=== PATIENT | female | born 1995 | race Caucasian/White ===

== ENCOUNTER 2021-07-10 16:56 | Day surgery (SDC) | payer BC ==
[2021-07-10 17:58] VITALS: BMI 38.6
[2021-07-10] MEDS ORDERED: hydrALAZINE 20 MG/ML VIAL SLOW IVP PRN (19:59)
== END 2021-07-10 19:50 | disposition home or self-care (01) ==
LOC: CSHLD/OP 16:56
PROVIDERS: ATTEND Obstetrics & Gynecology
DX: O99.891 Other specified diseases and conditions complicating pregnancy (principal); R10.9 Unspecified abdominal pain; Z3A.31 31 weeks gestation of pregnancy; Z79.82 Long term (current) use of aspirin; Z88.1 Allergy status to other antibiotic agents; Z88.2 Allergy status to sulfonamides

== ENCOUNTER 2021-07-22 21:58 | Day surgery (SDC) | payer BC ==
[2021-07-22 22:30] VITALS: BMI 38.7
[2021-07-22] MEDS ORDERED: hydrALAZINE 20 MG/ML VIAL SLOW IVP PRN (23:04)
[2021-07-22 23:36] LABS: Hemoglobin 10.1 g/dL (12.0-15.5); Mean Corpuscular HGB CONC 35.1 g/dL (32.0-36.0); Mean Corpuscular Volume 82.8 fl (81.6-98.3); Mean Platelet Volume 10.6 fl (7.4-10.4); Platelet Count 316 10x3/uL (150-450); Red Blood Cell (RBC) Count 3.48 10x6/uL (3.90-5.03); White Blood Cell (WBC) Count 13.3 10x3/uL (3.5-10.5)
[2021-07-22 23:52] LABS: Creatinine, Urine 110.2 mg/dL (47-110)
[2021-07-23 00:04] LABS: ALT (SGPT) 38 U/L (8-55); AST (SGOT) 20 U/L (5-34); Albumin 3.4 g/dL (3.5-5.0); Alkaline Phosphatase 134 U/L (40-110); Anion Gap 15 mmol/L (10-20); BUN (Urea Nitrogen) Less than 4 mg/dL (7.0-18.7); Bilirubin, Total 0.3 mg/dL (0.2-1.2); Calc. Creatinine Clearance 240 mL/min (70-130); Calcium 9.1 mg/dL (7.8-10.44); Carbon Dioxide 21 mmol/L (22-29); Chloride 104 mmol/L (98-107); Globulin 3.3 g/dL (2.4-3.5); Glucose 124 mg/dL (70-105); Potassium 3.2 mmol/L (3.5-5.1); Protein, Total 6.7 g/dL (6.0-8.3); Sodium 137 mmol/L (136-145)
[2021-07-23] MEDS ORDERED: Lactated Ringer's 1,000 ML IV SCH (00:30)
== END 2021-07-23 01:53 | disposition home or self-care (01) ==
LOC: CSHLD/OP 21:58
PROVIDERS: ATTEND Obstetrics & Gynecology
DX: O99.891 Other specified diseases and conditions complicating pregnancy (principal); R03.0 Elevated blood-pressure reading, without diagnosis of hypertension; Z3A.33 33 weeks gestation of pregnancy; Z79.82 Long term (current) use of aspirin; Z88.1 Allergy status to other antibiotic agents; Z88.2 Allergy status to sulfonamides
CPT/HCPCS: 36415; 80053; 82570; 84156; 85027; 96360; 99283

== ENCOUNTER 2021-09-01 17:05 | Inpatient (IN) | payer BC ==
[~2021-09-01 17:05] MED LIST: Bupivacaine PF 0.5% 30 ML VIAL ONE; Lidocaine 2% MPF 10 ML AMP (For Epidural Use) ONE
[2021-09-01 17:20] VITALS: BMI 40.3
[2021-09-01] MEDS ORDERED: Lidocaine 1% (PF) 30 ML VIAL SC PRN (18:13)
[2021-09-01] MEDS ORDERED: hydrALAZINE 20 MG/ML VIAL SLOW IVP PRN (18:13)
[2021-09-01] MEDS ORDERED: Misoprostol 200 MCG TAB PR PRN (18:13)
[2021-09-01] MEDS ORDERED: Ibuprofen 800 MG TAB PO PRN (18:13)
[2021-09-01] MEDS ORDERED: Promethazine HCl 25 MG/ML VIAL IM PRN (18:13)
[2021-09-01] MEDS ORDERED: HYDROcodone/Acetaminophen 5/325 mg Tablet PO PRN ×2 (18:13)
[2021-09-01] MEDS ORDERED: Ondansetron PF 4 MG/2 ML Vial IVP PRN (18:13)
[2021-09-01] MEDS ORDERED: NS w/ Oxytocin 30 units 500 ML IV SCH (18:15)
[2021-09-01 20:15] LABS: Hemoglobin 10.9 g/dL (12.0-15.5); Mean Corpuscular HGB CONC 35.5 g/dL (32.0-36.0); Mean Corpuscular Hemoglobin 29.9 pg (27.0-33.0); Mean Corpuscular Volume 84.3 fl (81.6-98.3); Mean Platelet Volume 11.2 fl (7.4-10.4); Platelet Count 251 10x3/uL (150-450); RBC Distribution Width 16.2 % (11.5-14.5); Red Blood Cell (RBC) Count 3.64 10x6/uL (3.90-5.03); White Blood Cell (WBC) Count 11.9 10x3/uL (3.5-10.5)
[2021-09-01 20:22] LABS: ALT (SGPT) 11 U/L (8-55); AST (SGOT) 18 U/L (5-34); Albumin 3.3 g/dL (3.5-5.0); Alkaline Phosphatase 199 U/L (40-110); Anion Gap 17 mmol/L (10-20); BUN (Urea Nitrogen) 5 mg/dL (7.0-18.7); Bilirubin, Total 0.3 mg/dL (0.2-1.2); Calc. Creatinine Clearance 281 mL/min (70-130); Calcium 8.8 mg/dL (7.8-10.44); Carbon Dioxide 18 mmol/L (22-29); Chloride 106 mmol/L (98-107); Estimated GFR 132; Glucose 101 mg/dL (70-105); Potassium 3.4 mmol/L (3.5-5.1); Protein, Total 6.3 g/dL (6.0-8.3); Sodium 138 mmol/L (136-145)
[2021-09-01 20:37] LABS: HBSAg Index 0.22 S/CO (0-0.99); Hep B Surf Ag Non-Reactive S/CO (NonReactive); Syphilis Antibody Nonreactive (Nonreactive); Syphilis Antibody Index 0.03 S/CO (<1.00 Non-Reactive)
[2021-09-01 21:20] LABS: SARS-CoV-2 NAA Rapid Test Not Detected (NotDetected)
[2021-09-01] MEDS: Acetaminophen 500 MG TAB PO PRN (22:48)
[2021-09-02] MEDS ORDERED: Butorphanol Tartrate 1 MG/ML VIAL ONE (03:16)
[2021-09-02] MEDS ORDERED: Butorphanol Tartrate 1 MG/ML VIAL SLOW IVP PRN (04:11)
[2021-09-02] MEDS ORDERED: Magnesium Sulfate 20 gm/500 ml 20 GM/500 ML BAG ONE (06:22)
[2021-09-02] MEDS ORDERED: Lorazepam 2 MG/ML VIAL SLOW IVP PRN (07:00)
[2021-09-02] MEDS ORDERED: Labetalol HCl 100 MG/20 ML VIAL SLOW IVP PRN ×2 (07:00)
[2021-09-02] MEDS ORDERED: Magnesium Sulfate 20 gm/500 ml 4 GM/100 ML BAG IVPB SCH (07:00)
[2021-09-02] MEDS ORDERED: Magnesium Sulfate 20 gm/500 ml 20 GM/500 ML BAG IVPB SCH (07:00)
[2021-09-02] MEDS ORDERED: Calcium Gluc 4.6 MEQ/10 ML (100 MG/ML) SLOW IVP PRN (07:00)
[2021-09-02] MEDS ORDERED: hydrALAZINE 20 MG/ML VIAL SLOW IVP PRN ×2 (07:00)
[2021-09-02] MEDS ORDERED: Fentanyl 2 mcg/Bup 0.1% Cadd 100 ML ONE (08:34)
[2021-09-02] MEDS: Fentanyl 2 mcg/Bupivacaine 0.1% Cassette 100 ML EPIDURAL SCH ×2 (09:19→16:25)
[2021-09-02] MEDS: Misoprostol 100 MCG TAB VAG SCH ×2 (09:48→19:41)
[2021-09-02] MEDS: Acetaminophen 500 MG TAB PO PRN ×2 (10:12→19:22)
[2021-09-02] MEDS ORDERED: Lactated Ringer's 500 ML IV PRN (13:05)
[2021-09-02] MEDS ORDERED: Moisturizing Cream (Eucerin) 113 GM JAR TOP PRN ×2 (13:05→19:44)
[2021-09-02] MEDS ORDERED: ePHEDrine Sulfate 50 MG/10 ML VIAL SLOW IVP PRN (13:05)
[2021-09-02] MEDS ORDERED: diphenhydrAMINE 50 MG/ML VIAL IVP PRN ×3 (13:05→21:40)
[2021-09-02] MEDS ORDERED: Naloxone HCl 0.4 mg/ml Vial IVP PRN ×4 (13:05→19:44)
[2021-09-02] MEDS ORDERED: Promethazine HCl 25 MG/ML VIAL IM PRN ×3 (13:05→21:40)
[2021-09-02] MEDS ORDERED: Ondansetron PF 4 MG/2 ML Vial IVP PRN ×3 (13:05→21:40)
[2021-09-02] MEDS ORDERED: Acetaminophen 325 MG TAB PO PRN (13:05)
[2021-09-02] MEDS ORDERED: Communication Order-Pharmacy FS SCH ×3 (13:15→21:45)
[2021-09-02 15:32] LABS: Magnesium 4.3 mg/dL (1.6-2.6)
[2021-09-02] MEDS ORDERED: Azithromycin 500 MG VIAL ONE (18:28)
[2021-09-02] MEDS ORDERED: CEFAZOLIN 2 GM VIAL ONE (18:31)
[2021-09-02] MEDS ORDERED: Famotidine/PF 20 mg/2ml Vial ONE (19:29)
[2021-09-02] MEDS ORDERED: Famotidine/PF 20 mg/2ml Vial SLOW IVP PRN (19:31)
[2021-09-02] MEDS ORDERED: Bicitra 30 ML UDCUP PO PRN (19:31)
[2021-09-02] MEDS ORDERED: Fentanyl 100 MCG/2 ML VIAL SLOW IVP PRN (19:44)
[2021-09-02] MEDS ORDERED: L&D-Morphine 4 MG/ML VIAL SLOW IVP PRN (19:44)
[2021-09-02] MEDS ORDERED: Ondansetron HCl/PF 4 MG/2 ML Vial IVP PRN (19:44)
[2021-09-02] MEDS ORDERED: Promethazine HCl 25 MG SUPP PR PRN (19:44)
[2021-09-02] MEDS ORDERED: Meperidine HCl/PF 25 MG/ML VIAL SLOW IVP PRN (19:44)
[2021-09-02] MEDS ORDERED: Naloxone HCl 0.4 mg/ml Vial IV PRN ×2 (19:44→21:40)
[2021-09-02] MEDS ORDERED: Ketorolac Tromethamine 30 MG/ML VIAL IVP SCH (19:45)
[2021-09-02] MEDS ORDERED: Azithromycin 500 MG in Sodium Chloride 0.9% 250 ML 250 ML IVPB SCH (19:45)
[2021-09-02] MEDS ORDERED: Dexamethasone 4 mg/ml Vial ONE (19:50)
[2021-09-02] MEDS ORDERED: Oxytocin 10 UNITS/ML VIAL ONE (19:50)
[2021-09-02] MEDS ORDERED: Ondansetron PF 4 MG/2 ML Vial ONE (19:50)
[2021-09-02] MEDS ORDERED: Morphine PF 10 MG/10 ML VIAL ONE (19:50)
[2021-09-02] MEDS ORDERED: Gentamicin 380 MG, Admixture Fee 1 EACH in Sodium Chloride 0.9% 100 ML IVPB SCH (20:30)
[2021-09-02] MEDS ORDERED: Clindamycin/D5W 900 MG in Premix Bag 1 BAG IVPB SCH (20:30)
[2021-09-02] MEDS ORDERED: Lidocaine 2% PF 5 ML VIAL ONE (20:48)
[2021-09-02] MEDS ORDERED: Misoprostol 200 MCG TAB ONE (20:53)
[2021-09-02] MEDS ORDERED: Tranexamic Acid 1,000 MG/10 ML VIAL ONE (20:53)
[2021-09-02] MEDS ORDERED: Ketamine 50 MG/ML (10ML VIAL) ONE (20:53)
[2021-09-02] MEDS ORDERED: Midazolam HCl 2 mg/2 ml Vial ONE (20:54)
[2021-09-02 21:21] LABS: RapidComm Collect By CBN
[2021-09-02 21:24] LABS: RapidComm Collect By CBN; pH (Cord, venous) 7.381 (7.250-7.350)
[2021-09-02] MEDS ORDERED: diphenhydrAMINE 25 MG CAP PO PRN (21:40)
[2021-09-02] MEDS ORDERED: diphenhydrAMINE 50 MG/ML VIAL IM PRN (21:40)
[2021-09-02] MEDS ORDERED: fentaNYL Citrate/PF 1,000 MCG in Sodium Chloride 0.9% 30 ML IV PRN (21:40)
[2021-09-02] MEDS ORDERED: Zolpidem Tartrate 5 MG TAB PO PRN (21:40)
[2021-09-03] MEDS ORDERED: Boostrix 0.5 ML (Tdap) VIAL IM ONE (00:07)
[2021-09-03] MEDS ORDERED: Calcium Gluc 4.6 MEQ/10 ML (100 MG/ML) SLOW IVP PRN ×2 (00:07→08:38)
[2021-09-03] MEDS ORDERED: HYDROcodone/Acetaminophen 5/325 mg Tablet PO PRN (00:07)
[2021-09-03] MEDS ORDERED: Lanolin Ointment 7 GM TUBE TOP PRN (00:07)
[2021-09-03] MEDS ORDERED: Ondansetron PF 4 MG/2 ML Vial IVP PRN (00:07)
[2021-09-03] MEDS ORDERED: Labetalol HCl 100 MG/20 ML VIAL SLOW IVP PRN ×2 (00:07)
[2021-09-03] MEDS ORDERED: Zolpidem Tartrate 5 MG TAB PO PRN (00:07)
[2021-09-03] MEDS ORDERED: Lorazepam 2 MG/ML VIAL SLOW IVP PRN (00:07)
[2021-09-03] MEDS ORDERED: Simethicone Chewable 80 MG TAB PO PRN (00:07)
[2021-09-03] MEDS ORDERED: hydrALAZINE 20 MG/ML VIAL SLOW IVP PRN ×2 (00:07)
[2021-09-03] MEDS ORDERED: NS w/ Oxytocin 30 units 500 ML IV SCH (00:45)
[2021-09-03] MEDS ORDERED: Magnesium Sulfate 20 gm/500 ml 20 GM/500 ML BAG ONE (01:06)
[2021-09-03] MEDS: Ketorolac Tromethamine 30 MG/ML VIAL IVP PRN ×3 (01:10→14:56)
[2021-09-03 06:49] LABS: #Eosinphils 0.1 10x3/uL (0.0-0.5); %Basophils 0.1 % (0.0-2.0); %Eosinophils 0.2 % (0.0-6.0); %Lymphocytes 6.1 % (18.0-47.0); %Neutrophils 88.6 % (40.0-75.0); Mean Corpuscular Hemoglobin 29.5 pg (27.0-33.0); Mean Corpuscular Volume 86.9 fl (81.6-98.3); Mean Platelet Volume 11.1 fl (7.4-10.4); Platelet Count 247 10x3/uL (150-450); Red Blood Cell (RBC) Count 3.05 10x6/uL (3.90-5.03); White Blood Cell (WBC) Count 24.8 10x3/uL (3.5-10.5)
[2021-09-03 07:26] LABS: Band 19 % (5-11); Lymphocytes 4 % (21-51); Monocytes 1 % (0-10); Neutrophil 76 % (42-75)
[2021-09-03 07:27] LABS: Platelet Morphology Comment Appears Adequate
[2021-09-03 07:28] LABS: Anisocytosis SLIGHT = 6-15 cells (100X) (0-5/hpf); Hypochromia SLIGHT = 6-15 cells (100X) (0-5/hpf); Macrocytosis SLIGHT = 6-15 cells (100X) (0-5/hpf); Microcytosis SLIGHT = 6-15 cells (100X) (0-5/hpf); Polychromasia SLIGHT = 2-3 cells (100X) (0-2/hpf)
[2021-09-03] MEDS ORDERED: Magnesium Sulfate 20 gm/500 ml 20 GM/500 ML BAG IVPB SCH (08:45)
[2021-09-03] MEDS: Prenatal Vitamin 1 TAB PO SCH (09:10)
[2021-09-03] MEDS ORDERED: Furosemide 20 MG/2 ML VIAL SLOW IVP SCH (09:15)
[2021-09-03] MEDS ORDERED: Ketorolac Tromethamine 30 MG/ML VIAL IVP PRN (21:46)
[2021-09-04] MEDS: Ibuprofen 800 MG TAB PO SCH ×3 (05:22→21:04)
[2021-09-04] MEDS: HYDROcodone/Acetaminophen 5/325 mg Tablet PO PRN ×3 (09:13→18:36)
[2021-09-04] MEDS: Prenatal Vitamin 1 TAB PO SCH (09:13)
[2021-09-05] MEDS: Ibuprofen 800 MG TAB PO SCH ×3 (05:16→22:02)
[2021-09-05] MEDS: Prenatal Vitamin 1 TAB PO SCH (09:01)
[2021-09-05] MEDS ORDERED: Labetalol HCl 100 MG TAB PO SCH (09:30)
[2021-09-05] MEDS ORDERED: NIFEdipine XL 30 MG TAB PO SCH (19:00)
[2021-09-05] MEDS: Labetalol HCl 100 MG TAB PO SCH (22:01)
[2021-09-06] MEDS: Ibuprofen 800 MG TAB PO SCH (05:11)
[2021-09-06] MEDS: Misoprostol 100 MCG TAB VAG SCH (06:10)
[2021-09-06 08:13] VITALS: BP 134/79; TEMP 97.8
[2021-09-06] MEDS: Labetalol HCl 100 MG TAB PO SCH (08:37)
[2021-09-06] MEDS: Prenatal Vitamin 1 TAB PO SCH (08:37)
[2021-09-06] MEDS ORDERED: NIFEdipine XL 30 MG TAB PO SCH (09:00)
== END 2021-09-06 10:00 | disposition home or self-care (01) | DRG 788 ==
LOC: CSHLD/OP 17:05 → CSHLD 19:44 → CSHPED 09-03 23:29
PROVIDERS: ADMIT Obstetrics & Gynecology; ATTEND Obstetrics & Gynecology
PROC: 10D00Z1 Extraction of Products of Conception, Low, Open Approach (ICD-10-PCS; principal; 2021-09-02)
PROC: 10907ZC Drainage of Amniotic Fluid, Therapeutic from Products of Conception, Via Natural or Artificial Opening (ICD-10-PCS; 2021-09-02)
PROC: 10H07YZ Insertion of Other Device into Products of Conception, Via Natural or Artificial Opening (ICD-10-PCS; 2021-09-02)
DX: O14.14 Severe pre-eclampsia complicating childbirth (principal); Z3A.38 38 weeks gestation of pregnancy; Z37.0 Single live birth; Z20.822 Contact with and (suspected) exposure to COVID-19; Z88.2 Allergy status to sulfonamides; Z88.1 Allergy status to other antibiotic agents; O32.4XX0 Maternal care for high head at term, not applicable or unspecified; O69.81X0 Labor and delivery complicated by cord around neck, without compression, not applicable or unspecified
CPT/HCPCS: 36415; 76815; 80053; 81003; 82805; 83735; 85025; 85027; 86780; 86850; 86900; 86901; 87340; 99285; J0360; J0456; J0595; J0690; J1100; J1885; J1940; J2001; J2250; J2274; J2405; J2590; J3010; J3475; J3490; S0020; U0002

== ENCOUNTER 2023-03-03 21:26 | Day surgery (SDC) | payer SELFPAY ==
[2023-03-03 21:50] VITALS: BMI 35.2
[2023-03-03] MEDS ORDERED: hydrALAZINE 20 MG/ML VIAL SLOW IVP PRN (22:19)
[2023-03-03 23:10] LABS: Bilirubin Neg (Negative); Blood, Urine Negative (Negative); Clarity Clear (Clear); Glucose, Urine (Dipstick) Normal (Negative); Ketone, Urine Negative (Negative); Leukocyte Negative (Negative); Nitrite Negative (Negative); Protein, Urine (Dipstick) 15 mg/dl (Neg-Trace); Specific Gravity, Urine 1.015 (1.005-1.030); Urobilinogen Normal mg/dL (Less than 2)
[2023-03-03 23:24] LABS: Bacteria/HPF None Seen HPF (None Seen); CAUTI Indications for Culture Pregnancy; RBC/HPF None Seen HPF (0-3); Squamous Epithelial None Seen HPF (0-3); WBC/HPF None Seen HPF (0-3)
[2023-03-03 23:25] LABS: Urine Culture Reflex Yes Yes
== END 2023-03-04 00:06 | disposition home or self-care (01) ==
LOC: CSHLD/OP 21:26
PROVIDERS: ATTEND Obstetrics & Gynecology
DX: O99.891 Other specified diseases and conditions complicating pregnancy (principal); R10.9 Unspecified abdominal pain; Z79.899 Other long term (current) drug therapy; Z88.8 Allergy status to other drugs, medicaments and biological substances; Z88.2 Allergy status to sulfonamides; Z3A.29 29 weeks gestation of pregnancy
CPT/HCPCS: 81001; 87086; 99282

== ENCOUNTER 2023-03-26 19:09 | Day surgery (SDC) | payer SELFPAY ==
[2023-03-26 19:49] VITALS: BMI 36.0
[2023-03-26] MEDS ORDERED: hydrALAZINE 20 MG/ML VIAL SLOW IVP PRN (20:05)
[2023-03-26] MEDS ORDERED: Ondansetron ODT 4 MG TAB PO PRN (20:09)
[2023-03-26 20:27] LABS: #Eosinphils 0.1 10x3/uL (0.0-0.5); #Neutrophils 7.9 10x3/uL (1.5-8.4); %Basophils 0.3 % (0.0-2.0); %Eosinophils 0.6 % (0.0-6.0); %Monocytes 8.5 % (0.0-10.0); %Neutrophils 67.4 % (40.0-75.0); Hematocrit 29.9 % (34.9-44.5); Hemoglobin 10.8 g/dL (12.0-15.5); Mean Corpuscular HGB CONC 36.1 g/dL (32.0-36.0); Mean Corpuscular Hemoglobin 30.6 pg (27.0-33.0); Mean Corpuscular Volume 84.7 fl (81.6-98.3); Mean Platelet Volume 10.6 fl (7.4-10.4); Platelet Count 279 10x3/uL (150-450); RBC Distribution Width 12.3 % (11.5-14.5); Red Blood Cell (RBC) Count 3.53 10x6/uL (3.90-5.03); White Blood Cell (WBC) Count 11.7 10x3/uL (3.5-10.5)
[2023-03-26] MEDS ORDERED: Lactated Ringer's 1,000 ML IV SCH (20:30)
[2023-03-26 20:40] LABS: ALT (SGPT) 35 U/L (8-55); Albumin 3.4 g/dL (3.5-5.0); Alkaline Phosphatase 99 U/L (40-110); Anion Gap 16 mmol/L (10-20); BUN (Urea Nitrogen) 6 mg/dL (7.0-18.7); Bilirubin, Total 0.3 mg/dL (0.2-1.2); Calc. Creatinine Clearance 212 mL/min (70-130); Calcium 8.6 mg/dL (7.8-10.44); Carbon Dioxide 19 mmol/L (22-29); Chloride 104 mmol/L (98-107); Estimated GFR 126; Globulin 3.6 g/dL (2.4-3.5); Glucose 91 mg/dL (70-105); Potassium 3.6 mmol/L (3.5-5.1); Sodium 135 mmol/L (136-145)
[2023-03-26 20:41] LABS: AST (SGOT) 40 U/L (5-34)
[2023-03-26 20:59] LABS: Creatinine, Urine 125.7 mg/dL (47-110)
== END 2023-03-26 22:34 | disposition home or self-care (01) ==
LOC: CSHLD/OP 19:09
PROVIDERS: ATTEND Obstetrics & Gynecology
DX: O99.891 Other specified diseases and conditions complicating pregnancy (principal); R51.9 Headache, unspecified; R11.0 Nausea; R10.13 Epigastric pain; N85.8 Other specified noninflammatory disorders of uterus; H53.9 Unspecified visual disturbance; O12.03 Gestational edema, third trimester; O99.513 Diseases of the respiratory system complicating pregnancy, third trimester; J45.909 Unspecified asthma, uncomplicated; O99.283 Endocrine, nutritional and metabolic diseases complicating pregnancy, third trimester; E28.2 Polycystic ovarian syndrome; Z79.899 Other long term (current) drug therapy; Z88.8 Allergy status to other drugs, medicaments and biological substances; Z88.2 Allergy status to sulfonamides; Z3A.32 32 weeks gestation of pregnancy
CPT/HCPCS: 80053; 82570; 84156; 85025

== ENCOUNTER 2023-04-21 12:47 | Inpatient (IN) | payer SELFPAY ==
[2023-04-21] MEDS: Acetaminophen 500 MG TAB PO SCH (13:40)
[2023-04-21 14:11] LABS: #Basophils 0.1 10x3/uL (0.0-0.2); #Eosinphils 0.1 10x3/uL (0.0-0.5); #Monocytes 0.9 10x3/uL (0.0-1.1); #Neutrophils 10.1 10x3/uL (1.5-8.4); %Basophils 0.3 % (0.0-2.0); %Lymphocytes 22.4 % (18.0-47.0); %Monocytes 6.1 % (0.0-10.0); %Neutrophils 68.8 % (40.0-75.0); Hematocrit 27.5 % (34.9-44.5); Hemoglobin 9.5 g/dL (12.0-15.5); Mean Corpuscular HGB CONC 34.5 g/dL (32.0-36.0); Mean Corpuscular Hemoglobin 29.8 pg (27.0-33.0); Mean Corpuscular Volume 86.2 fl (81.6-98.3); Mean Platelet Volume 10.7 fl (7.4-10.4); Platelet Count 267 10x3/uL (150-450); RBC Distribution Width 12.3 % (11.5-14.5); Red Blood Cell (RBC) Count 3.19 10x6/uL (3.90-5.03); White Blood Cell (WBC) Count 14.6 10x3/uL (3.5-10.5)
[2023-04-21 14:23] LABS: ALT (SGPT) 15 U/L (8-55); AST (SGOT) 18 U/L (5-34); Albumin 3.3 g/dL (3.5-5.0); Alkaline Phosphatase 118 U/L (40-110); Anion Gap 12 mmol/L (10-20); BUN (Urea Nitrogen) Less than 4 mg/dL (7.0-18.7); Bilirubin, Total 0.3 mg/dL (0.2-1.2); Calc. Creatinine Clearance 0 mL/min (70-130); Calcium 8.7 mg/dL (7.8-10.44); Carbon Dioxide 20 mmol/L (22-29); Chloride 107 mmol/L (98-107); Estimated GFR 128; Globulin 3.4 g/dL (2.4-3.5); Glucose 69 mg/dL (70-105); Potassium 3.4 mmol/L (3.5-5.1); Protein, Total 6.7 g/dL (6.0-8.3); Sodium 136 mmol/L (136-145)
[2023-04-21] MEDS ORDERED: Labetalol HCl 100 MG/20 ML VIAL SLOW IVP PRN ×3 (15:04)
[2023-04-21] MEDS ORDERED: Ondansetron PF 4 MG/2 ML Vial IVP PRN ×2 (15:04→17:35)
[2023-04-21] MEDS ORDERED: Calcium Gluc 4.6 MEQ/10 ML (100 MG/ML) SLOW IVP PRN (15:04)
[2023-04-21] MEDS ORDERED: hydrALAZINE 20 MG/ML VIAL SLOW IVP PRN ×2 (15:04)
[2023-04-21] MEDS ORDERED: Bicitra 30 ML UDCUP PO PRN (15:04)
[2023-04-21] MEDS ORDERED: Lorazepam 2 MG/ML VIAL SLOW IVP PRN (15:04)
[2023-04-21] MEDS ORDERED: Promethazine HCl 25 MG/ML VIAL IM PRN ×2 (15:04→17:35)
[2023-04-21] MEDS ORDERED: Famotidine/PF 20 mg/2ml Vial SLOW IVP PRN (15:04)
[2023-04-21] MEDS ORDERED: Oxytocin 30 units/NS 500 ML 500 ML IV SCH (15:15)
[2023-04-21] MEDS: Magnesium Sulfate 20 gm/500 ml 20 GM/500 ML BAG IVPB SCH (15:35)
[2023-04-21] MEDS: Clindamycin/D5W 900 MG in Premix 1 BAG IVPB SCH (15:56)
[2023-04-21 16:04] VITALS: BMI 37.5
[2023-04-21 16:24] LABS: Hematocrit 29.4 % (34.9-44.5); Mean Corpuscular Hemoglobin 29.6 pg (27.0-33.0); Mean Platelet Volume 10.9 fl (7.4-10.4); Platelet Count 284 10x3/uL (150-450); RBC Distribution Width 12.3 % (11.5-14.5); Red Blood Cell (RBC) Count 3.38 10x6/uL (3.90-5.03); White Blood Cell (WBC) Count 14.6 10x3/uL (3.5-10.5)
[2023-04-21 16:51] LABS: HBSAg Index 0.19 S/CO (0-0.99); Hep B Surf Ag - L&D Non-Reactive S/CO (NonReactive)
[2023-04-21 16:53] LABS: Syphilis Antibody Nonreactive (Nonreactive); Syphilis Antibody Index 0.04 S/CO (<1.00 Non-Reactive)
[2023-04-21] MEDS ORDERED: Lanolin Ointment 7 GM TUBE TOP PRN (17:22)
[2023-04-21] MEDS ORDERED: HYDROcodone/Acetaminophen 5/325 mg Tablet PO PRN ×2 (17:22)
[2023-04-21] MEDS ORDERED: Misoprostol 200 MCG TAB PR PRN (17:22)
[2023-04-21] MEDS ORDERED: Boostrix 0.5 ML (Tdap) VIAL (>/=7 yrs of age) IM ONE (17:22)
[2023-04-21 17:29] LABS: Analyzer IN Cardio CS NICU; RapidComm Collect By CBN
[2023-04-21 17:31] LABS: Analyzer IN Cardio CS NICU; RapidComm Collect By CBN; pH (Cord, venous) 7.393 (7.250-7.350)
[2023-04-21] MEDS ORDERED: Promethazine HCl 25 MG SUPP PR PRN (17:35)
[2023-04-21] MEDS ORDERED: Meperidine HCl/PF 25 MG (1 mL) VIAL SLOW IVP PRN (17:35)
[2023-04-21] MEDS ORDERED: diphenhydrAMINE 50 MG/ML VIAL IVP PRN (17:35)
[2023-04-21] MEDS ORDERED: HYDROmorphone 0.5 MG/0.5 ML SYRINGE SLOW IVP PRN (17:35)
[2023-04-21] MEDS ORDERED: Moisturizing Cream (Eucerin) 113 GM JAR TOP PRN (17:35)
[2023-04-21] MEDS ORDERED: Naloxone HCl 0.4 mg/ml Vial IVP PRN ×2 (17:35)
[2023-04-21] MEDS ORDERED: fentaNYL 50 mcg/mL 1 mL Vial SLOW IVP PRN (17:35)
[2023-04-21] MEDS ORDERED: Naloxone HCl 0.4 mg/ml Vial IV PRN (17:35)
[2023-04-21] MEDS ORDERED: Communication Order-Pharmacy FS SCH (17:45)
[2023-04-21] MEDS ORDERED: Ketorolac Tromethamine 30 MG (1 mL) VIAL IVP SCH (17:45)
[2023-04-21] MEDS: Docusate 100 MG CAP PO SCH (22:03)
[2023-04-21] MEDS: Ferrous Sulfate 325 MG TAB PO SCH (22:03)
[2023-04-22] MEDS: Ondansetron PF 4 MG/2 ML Vial IVP PRN (01:30)
[2023-04-22 03:18] LABS: Hematocrit 28.5 % (34.9-44.5); Hemoglobin 9.9 g/dL (12.0-15.5); Mean Corpuscular HGB CONC 34.7 g/dL (32.0-36.0); Mean Corpuscular Hemoglobin 29.9 pg (27.0-33.0); Mean Corpuscular Volume 86.1 fl (81.6-98.3); Mean Platelet Volume 10.9 fl (7.4-10.4); Platelet Count 264 10x3/uL (150-450); Red Blood Cell (RBC) Count 3.31 10x6/uL (3.90-5.03); White Blood Cell (WBC) Count 20.3 10x3/uL (3.5-10.5)
[2023-04-22] MEDS: Lactated Ringer's 1,000 ML IV SCH (09:11)
[2023-04-22] MEDS: Oxytocin 10 UNITS/ML VIAL ONE ×2 (09:12→09:13)
[2023-04-22] MEDS: Morphine PF 10 MG/10 ML VIAL ONE (09:12)
[2023-04-22] MEDS: Misoprostol 200 MCG TAB ONE (09:12)
[2023-04-22] MEDS: fentaNYL 50 mcg/mL 1 mL Vial ONE (09:12)
[2023-04-22] MEDS: Gentamicin Sulfate 500 MG in Sodium Chloride 0.9% 100 ML IVPB SCH (09:12)
[2023-04-22] MEDS: Carboprost 250 MCG/ML AMP ONE (09:12)
[2023-04-22] MEDS: Phenylephrine 40 MG/NS 250 ML 250 ML ONE (09:12)
[2023-04-22] MEDS: Tranexamic Acid 1,000 MG/10 ML VIAL ONE (09:12)
[2023-04-22] MEDS: Dexamethasone 4 mg/ml Vial ONE (09:13)
[2023-04-22] MEDS: Ondansetron PF 4 MG/2 ML Vial ONE (09:13)
[2023-04-22] MEDS: Simethicone Chewable 80 MG TAB PO PRN (12:22)
[2023-04-22] MEDS: Ketorolac Tromethamine 30 MG (1 mL) VIAL IVP PRN (15:11)
[2023-04-22] MEDS: Prenatal Vitamin 1 TAB PO SCH (17:39)
[2023-04-23] MEDS: Ibuprofen 800 MG TAB PO SCH (00:11)
[2023-04-23 03:19] LABS: Hematocrit 23.6 % (34.9-44.5); Hemoglobin 7.9 g/dL (12.0-15.5); Mean Corpuscular HGB CONC 33.5 g/dL (32.0-36.0); Mean Corpuscular Hemoglobin 28.6 pg (27.0-33.0); Mean Corpuscular Volume 85.5 fl (81.6-98.3); Mean Platelet Volume 10.6 fl (7.4-10.4); Platelet Count 284 10x3/uL (150-450); RBC Distribution Width 12.4 % (11.5-14.5); Red Blood Cell (RBC) Count 2.76 10x6/uL (3.90-5.03); White Blood Cell (WBC) Count 12.7 10x3/uL (3.5-10.5)
[2023-04-24 05:56] LABS: Hematocrit 20.5 % (34.9-44.5); Mean Corpuscular HGB CONC 34.1 g/dL (32.0-36.0); Mean Corpuscular Hemoglobin 30.3 pg (27.0-33.0); Mean Corpuscular Volume 88.7 fl (81.6-98.3); Mean Platelet Volume 10.5 fl (7.4-10.4); Platelet Count 265 10x3/uL (150-450); RBC Distribution Width 12.8 % (11.5-14.5); Red Blood Cell (RBC) Count 2.31 10x6/uL (3.90-5.03); White Blood Cell (WBC) Count 14.2 10x3/uL (3.5-10.5)
[2023-04-24 08:57] VITALS: BP 139/88; TEMP 97.8
== END 2023-04-24 10:30 | disposition home or self-care (01) | DRG 787 ==
LOC: CSHLD/OP 12:47 → CSHLD 17:14 → CSHPP 04-22 13:20
PROVIDERS: ADMIT Obstetrics & Gynecology; ATTEND Obstetrics & Gynecology
PROC: 10D00Z1 Extraction of Products of Conception, Low, Open Approach (ICD-10-PCS; principal; 2023-04-21)
DX: O14.14 Severe pre-eclampsia complicating childbirth (principal); D62 Acute posthemorrhagic anemia; Z3A.36 36 weeks gestation of pregnancy; Z37.0 Single live birth; O34.211 Maternal care for low transverse scar from previous cesarean delivery; O99.02 Anemia complicating childbirth
CPT/HCPCS: 36415; 51702; 80053; 82570; 82805; 84156; 85025; 85027; 86780; 86850; 86900; 86901; 87340; 99285; J1100; J1580; J1885; J2274; J2405; J2590; J3010; J3475; J3490